=== PATIENT | female | born 1970 | race Two or more races ===

== ENCOUNTER 2018-05-29 17:03 | Emergency (ER) | payer SELFPAY ==
[~2018-05-29] VITALS: Ht 160 cm; Wt 86.0 kg
[2018-05-29 22:08] VITALS: BP 143/85
== END 2018-05-29 22:07 | disposition home or self-care (01) ==
LOC: ER 17:03
DX: S62.511A Displaced fracture of proximal phalanx of right thumb, initial encounter for closed fracture (principal); F17.200 Nicotine dependence, unspecified, uncomplicated; W18.31XA Fall on same level due to stepping on an object, initial encounter; Y93.K1 Activity, walking an animal; Y92.89 Other specified places as the place of occurrence of the external cause; Y99.8 Other external cause status
CPT/HCPCS: 29125; 73130; 99284